=== PATIENT | female | born 1985 | race Caucasian/White ===

== ENCOUNTER 2019-09-09 16:25 | Inpatient (IN) | payer BC, MEDICAID, OTHER ==
[2019-09-09] MEDS ORDERED: Lidocaine 1% 30 ML SDV INJECT PRN (16:56)
[2019-09-09] MEDS ORDERED: Lactated Ringers 1,000 ML IV ONE (16:56)
[2019-09-09] MEDS ORDERED: Sodium Chloride 0.9% 10 ML Syringe FLUSH PRN (16:56)
[2019-09-09] MEDS ORDERED: Misoprostol 400 MCG (4 X 100 MCG TAB) RECTAL PRN (16:56)
[2019-09-09] MEDS ORDERED: Ondansetron 4 MG/2 ML SDV IV PRN (16:56)
[2019-09-09] MEDS ORDERED: Carboprost Tromethamine 250 MCG/1 ML Amp IM PRN (16:56)
[2019-09-09] MEDS ORDERED: Methylergonovine 0.2 MG/1 ML Amp IM PRN (16:56)
[2019-09-09] MEDS ORDERED: Acetaminophen 325 MG Tab PO PRN ×2 (16:56)
[2019-09-09] MEDS ORDERED: Tranexamic Acid 1,000 MG in Sodium Chloride 0.9% 100 ML IV PRN (16:56)
[2019-09-09] MEDS ORDERED: Oxytocin/Normal Saline 30 UNIT/500 ML BAG IV SCH ×2 (17:00)
[2019-09-09] MEDS ORDERED: Penicillin G Potassium 5 MILLUNITS in Sodium Chloride 0.9% 100 ML IV ONE (17:00)
[2019-09-09] MEDS: Lactated Ringers 1,000 ML IV SCH (17:35)
[2019-09-09] MEDS: Penicillin G Potassium 3 MILLUNITS in Sodium Chloride 0.9% 100 ML IV SCH (21:48)
[2019-09-09] MEDS ORDERED: fentaNYL 100 MCG/2 ML SDV IVPUSH PRN (22:09)
[2019-09-09] MEDS ORDERED: Calcium Carbonate 500 MG Tab.Chew PO ONE (22:38)
[2019-09-10] MEDS: Lactated Ringers 1,000 ML IV SCH ×4 (01:47→18:52)
[2019-09-10] MEDS: Penicillin G Potassium 3 MILLUNITS in Sodium Chloride 0.9% 100 ML IV SCH ×4 (01:48→21:59)
[2019-09-10] MEDS ORDERED: ceFAZolin 2 GM in Premix Bag 1 BAG IV ONE (07:26)
[2019-09-10] MEDS ORDERED: Citric Acid/Sodium Citrate Solution 30 ML Cup PO ONE (07:26)
[2019-09-10] MEDS ORDERED: diphenhydrAMINE 50 MG/ML SDV IVPUSH PRN (07:27)
[2019-09-10] MEDS ORDERED: ePHEDrine 50 MG/ML SDV IVPUSH PRN (07:27)
[2019-09-10] MEDS ORDERED: Acetaminophen/oxyCODONE 325-5 MG Tab PO PRN (07:27)
[2019-09-10] MEDS ORDERED: Naloxone 2 MG/2 ML Syringe IVPUSH PRN (07:27)
[2019-09-10] MEDS ORDERED: Oxytocin/Normal Saline 60 UNIT/1,000 ML BAG ONE (07:29)
[2019-09-10] MEDS: Simethicone 80 MG Tab.Chew PO SCH ×4 (10:58→20:06)
--- NOTE | 2019-09-10 12:46 | OR ---
DATE: 09/10/2019 PREOPERATIVE DIAGNOSES: 1. Intrauterine at 39 weeks by 10 and 3/7 weeks ultrasound. 2. Nonreassuring status. 3. Advanced maternal age. 4. Group B Streptococcus positive bacteriuria with antibiotics given. 5. Contractions with cervical change during this week of admission. 6. Rh negative. 7. History of macrosomia. 8. BV in . 9. G5, P3-0-1-3. POSTOPERATIVE DIAGNOSES: 1. Intrauterine at 39 weeks by 10 and 3/7 weeks ultrasound, delivered. 2. Nonreassuring status. 3. Advanced maternal age. 4. Group B Streptococcus positive bacteriuria with antibiotics given. 5. Contractions, cervical change during this week of admission. 6. Rh negative. 7. History of macrosomia. 8. BV in . 9. G5, P3-0-1-3. 10.Nuchal cord x1, reduced bluntly with delivery. PROCEDURE PERFORMED: Primary low transverse with 2-layer uterine closure with prior procedures being NST and Pitocin on 09/09/2019, followed by artificial rupture of membranes, scalp electrode, and then the on 09/10/2019. CORE SUCKER: Denise Chavez MD ANESTHESIA: Spinal. ESTIMATED BLOOD LOSS: 500 mL. IV FLUIDS: Lactated Ringer's 300 mL. URINE OUTPUT: 500 mL and clear. START: 0800. UTERINE: 8:01. DELIVERY: 8:02. STOP: 8:18. FINDINGS: Female, score 9 and 9 with nuchal cord x1 reduced bluntly with delivery. DESCRIPTION OF PROCEDURE IN DETAIL: After proper consent was obtained, the patient was brought to the operating room where spinal anesthetic was administered. Randolph was placed in preop under sterile conditions. The abdomen was prepped and draped in a normal sterile fashion. The patient was placed in supine position with left lateral tilt using Betadine due to the timeliness. Prior to Betadine administration, heart tones were in the high 160s. A skin incision was then made over lower abdomen in transverse Pfannenstiel-type fashion. This was carried down the fascia and scored in midline. Subcutaneous tissue was raked laterally with Willis retractor and fascial incision was extended in transverse fashion using curved Song's. Brandon clamps x2 were used to grasp the superior aspect of fascia and rectus muscles were dissected from the fascia using sharp and blunt technique. In a similar fashion, Brandon clamps x2 were used to grasp the inferior portion of incision and rectus and pyramidalis muscles were dissected from the fascia using blunt and sharp technique. Rectus muscles were in the midline with blunt technique. Abdominal cavity was entered with blunt technique and incision was extended superiorly and inferiorly with blunt technique. Sarabjit O large retractor was then introduced and used. Vesicouterine peritoneum was identified and incised in transverse fashion with Metzenbaum scissors and bladder flap was made digitally. A curvilinear incision was made along the lower uterine segment at 0801 hours. Uterus was entered sharply with some blood noted. Uterine incision was then extended in transverse fashion using blunt technique. vertex was then delivered through the incision followed by rest of the infant with minimal difficulty. Nuchal cord x1 was noted and reduced bluntly with delivery. Mouth and nares were suctioned. Cord was doubly clamped and cut, and was brought over to the team. Then, approximately 10 mL cord blood was obtained for labs. Placenta then delivered with gentle cord traction and fundal massage. Uterine cavity was then cleared of all blood clots and debris with lap sponge. Laureano clamps were used to grasp the uterine incision. This was closed in a running locked fashion and tied at lateral margins with 1-0 Vicryl. Second imbricating layer was applied and tied at lateral margins with an 0 Vicryl. First inspection of the uterine incision revealed hemostasis. Sarabjit O retractor was then removed and paracolic gutters were then cleared of all blood clots and debris with lap sponge. Anterior cul-de-sac was irrigated copiously and all blood clots were removed. Second and final inspection of the uterine incision and anterior cul-de-sac revealed hemostasis. Rectus muscles were then reapproximated in midline with [id number] stitch using 1-0 Vicryl. Subfascial tissue was found to be hemostatic and fascia was closed in a running fashion and tied at lateral margins with 0 looped PDS. Subcutaneous tissue was irrigated copiously. Hemostasis was reassured. Skin was reapproximated with medium monae. Sterile Aquacel dressing was applied. The uterine fundus was firm and massaged at the conclusion of this case -2 below umbilicus. No immediate complications were noted. Sponge, lap, and needle counts were correct. The patient received 2 g of Ancef preoperatively, Pitocin per protocol, and will receive Toradol at the conclusion of case for pain control. Mother and infant are currently stable at the time of dictation. [facility] /[id number]
--- NOTE | 2019-09-10 13:07 | PN ---
DATE: 09/10/2019 SUBJECTIVE: The patient is still feeling her contractions. I was called as there was tachycardia noted right before artificial rupture of membranes was done and persisted with change down to normal range with position change but now has recurred with concerns with variability. OBJECTIVE: Genitourinary: heart tones in the 180s. Minimal variability is noted. Pitocin has been stopped. Tocometer reveals contractions when reading every 2 to 3 minutes. Vaginal exam reveals her to be essentially unchanged from previously when she had artificial rupture of membranes at 4+ cm, -1 station, vertex suspected, and still yielding copious amounts of clear fluid with scalp electrode applied as difficulty detecting heart tones prior to this. ASSESSMENT AND PLAN: Nonreassuring status with tachycardia that has persisted. scalp electrode was applied to confirm this and is confirmed with minimal variability, therefore stat was called for. I did discuss with the patient and her male partner risks, benefits, alternatives, complications of including, but not limited to, infection, bleeding, damage to internal organs such as bowel, bladder, tubes, uterus, ovaries, and sometimes fetus rarely needing a blood transfusion or further surgery, and rarer maternal or . She understands, agrees, and wishes to proceed. Verbal and written consent were obtained, and questions were answered. We will proceed to the OR as soon as crew is ready and available. [facility] /[id number]
--- NOTE | 2019-09-10 13:37 | PN ---
DATE: 09/10/2019 SUBJECTIVE: The patient's contractions have persisted throughout the night and she has been on Pitocin. OBJECTIVE: Vital Signs: Blood pressure 105/61, heart rate 74. The patient feels afebrile. Appearance: Breathing through contractions, but answering questions appropriately in between. Genitourinary: heart tones in the 120s to 130s, felt to be reactive and reassuring. Tocometer when reading contractions appears to be every 2 to 4 minutes. Pitocin is at 5 milliunits per minute. Vaginal exam reveals her to be 4+ cm, 60% effaced, 0 to -1 station, vertex suspected, and artificial rupture of membranes done after discussion with the patient yielding copious amounts of clear fluid. ASSESSMENT AND PLAN: Intrauterine now at 39 weeks by 10 and 3/7 weeks ultrasound with advanced maternal age, GBS bacteria, now status post working on 4th dose of penicillin, noted with contractions, cervical change earlier this week, and Rh negative, G5, P3-0-1-3 with history of macrosomia. PLAN: We will continue to follow clinically and closely. The patient understands and agrees with the above treatment plan. Pain management was discussed as well. [facility] /[id number]
--- NOTE | 2019-09-10 13:40 | OBOUT ---
DATE: 09/09/2019 TIME: 1645 to 1704. REASON FOR NST: 1. Intrauterine at 38-6/7 weeks by 10-3/7-week ultrasound. 2. Advanced maternal age. 3. GBS bacteria positive with antibiotics to be given. 4. Contractions with cervical change this week. 5. Rh negative. 6. History of macrosomia. 7. BV in the . 8. G5, P3-0-1-3. NST INTERPRETATION: During this time period, heart tone baseline approximately is 135 to 140 and there are at least two 15 x 15 beats per minute accelerations, making this strip reactive. It is also noted to be reassuring. Tocometer reveals no evidence of contractions. Blood pressure 125/74, heart rate is 87. Patient feels afebrile. ASSESSMENT: 1. Nonstress test, reactive and reassuring. 2. Tocometer without contractions. PLAN: Please see H and P for further details. The patient will be admitted. Start penicillin immediately. Consider Pitocin in the future, and continue to follow clinically and closely with above risk factors. The patient understands and agrees with the above treatment plan. [facility] /[id number]
[2019-09-10] MEDS: Ketorolac 30 MG/ML SDV IVPUSH SCH ×2 (14:21→20:07)
[2019-09-10] MEDS: Prenatal Multivitamin with Calcium/Folic Acid/Iron Tab PO SCH (18:17)
[2019-09-11] MEDS: Ketorolac 30 MG/ML SDV IVPUSH SCH (01:58)
[2019-09-11] MEDS: Penicillin G Potassium 3 MILLUNITS in Sodium Chloride 0.9% 100 ML IV SCH ×3 (05:07→17:05)
[2019-09-11] MEDS: Prenatal Multivitamin with Calcium/Folic Acid/Iron Tab PO SCH (09:06)
[2019-09-11] MEDS: Docusate Sodium 100 MG Cap PO PRN ×2 (09:07→21:52)
[2019-09-11] MEDS: Simethicone 80 MG Tab.Chew PO SCH ×4 (09:08→21:53)
[2019-09-11] MEDS: Acetaminophen/oxyCODONE 325-5 MG Tab PO PRN ×3 (09:09→21:53)
--- NOTE | 2019-09-11 09:44 | PCM.PNPP ---
- General Info Date of Service: 09/11/19 (POD/PPD # 1 S/P Primary section) Functional Status: Reports: Pain Controlled, Tolerating Diet, Ambulating, Urinating - Review of Systems General: Reports: No Symptoms HEENT: Reports: No Symptoms Pulmonary: Reports: No Symptoms Cardiovascular: Reports: No Symptoms Gastrointestinal: Reports: No Symptoms Genitourinary: Reports: No Symptoms Musculoskeletal: Reports: No Symptoms Skin: Reports: No Symptoms Neurological: Reports: No Symptoms Psychiatric: Reports: No Symptoms - General Info Date of Service: 09/11/19 (POD/PPD # 1 S/P Primary section) - Patient Data Vital Signs - Most Recent: Last Vital Signs Temp 97.7 F 09/10/19 20:00 Pulse 87 09/10/19 20:00 Resp 16 09/10/19 20:00 BP 115/60 09/10/19 20:00 Pulse Ox 98 09/10/19 20:00 Weight - Most Recent: 215 lb I&O - Last 24 Hours: Intake & Output 09/10/19 09/11/19 09/11/19 22:59 06:59 14:59 Intake Total 1700 1000 Output Total 525 1650 Balance 1175 -650 Lab Results - Last 24 Hours: Laboratory Results - last 24 hr 09/10/19 09/11/19 Range/Units 15:35 07:05 WBC 8.8 (5.0-10.0) 10^3/uL RBC 3.14 L (4.2-5.4) 10^6/uL Hgb 8.9 L D (12.0-16.0) g/dL Hct 28.2 L (37.0-47.0) % MCV 89.8 (80-100) fL MCH 28.3 (27.0-34.0) pg MCHC 31.6 L (33.0-35.0) g/dL Plt Count 159 (150-450) 10^3/uL Blood Type B NEGATIVE Gel Antibody Screen Negative Rhogam Indicated Yes, baby rh pos H Med Orders - Current: Current Medications Acetaminophen (Tylenol) 650 mg PO Q4H PRN PRN Reason: Pain (Mild 1-3) and fever Carboprost Tromethamine (Hemabate Ds) 250 mcg IM ASDIRECTED PRN PRN Reason: HEMORRHAGE Diphenhydramine HCl (Benadryl) 25 mg IVPUSH Q6H PRN PRN Reason: Itching or Nausea Docusate Sodium (Colace) 100 mg PO Q12H PRN PRN Reason: Constipation Last Admin: 09/11/19 09:07 Dose: 100 mg Ephedrine Sulfate (Ephedrine Sulfate) 5 mg IVPUSH SEECOMMENT PRN PRN Reason: Other Fentanyl (Sublimaze) 50 mcg IVPUSH Q1H PRN PRN Reason: Pain Ferrous Sulfate (Ferrous Sulfate) 325 mg PO TIDMEALS MATEO Tranexamic Acid 1,000 mg/ (Sodium Chloride) 110 mls @ 660 mls/hr IV ONETIME PRN PRN Reason: Bleeding Lactated Ringer's (Ringers, Lactated) 1,000 mls @ 125 mls/hr IV ASDIRECTED MATEO Last Admin: 09/10/19 18:52 Dose: 125 mls/hr Oxytocin/Sodium Chloride (Pitocin In Ns 30 Unit/500 Ml) 30 unit in 500 mls @ 2 mls/hr IV TITRATE MATEO; Protocol Last Titration: 09/10/19 07:25 Dose: 0 mls/hr Oxytocin/Sodium Chloride (Pitocin In Ns 30 Unit/500 Ml) 30 unit in 500 mls @ 2 mls/hr IV TITRATE MATEO; Protocol Last Titration: 09/10/19 11:04 Dose: 0 munits/min, 0 mls/hr Penicillin G Potassium 3 (millunits/ Sodium Chloride) 100 mls @ 200 mls/hr IV Q4HR MATEO Last Admin: 09/11/19 06:33 Dose: Not Given Ibuprofen (Motrin) 800 mg PO Q8H PRN PRN Reason: mild pain or fever Lidocaine HCl (Xylocaine-Mpf 1%) 30 ml INJECT ASDIRECTED PRN PRN Reason: Perineal Repair Methylergonovine Maleate (Methergine) 0.2 mg IM ASDIRECTED PRN PRN Reason: Hemorrhage Misoprostol (Cytotec) 800 mcg RECTAL ASDIRECTED PRN PRN Reason: Hemorrhage Naloxone HCl (Narcan) 0.1 mg IVPUSH SEECOMMENT PRN PRN Reason: Respiratory Depression Ondansetron HCl (Zofran) 4 mg IV Q4H PRN PRN Reason: Nausea/Vomiting Oxycodone/Acetaminophen (Percocet 325-5 Mg) 1 tab PO Q4H PRN PRN Reason: Pain (moderate 4-6) Oxycodone/Acetaminophen (Percocet 325-5 Mg) 2 tab PO Q4H PRN PRN Reason: Pain (moderate 4-6) Last Admin: 09/11/19 09:09 Dose: 2 tab Prenat Multivit/Naranja/Iron/Folic Ac ( Plus Iron) 1 each PO DAILY [facility] Last Admin: 09/11/19 09:06 Dose: 1 each Simethicone (Simethicone) 160 mg PO QID [facility] Last Admin: 09/11/19 09:08 Dose: 160 mg Sodium Chloride (Saline Flush) 10 ml FLUSH ASDIRECTED PRN PRN Reason: Keep Vein Open Discontinued Medications Acetaminophen (Tylenol) 650 mg PO Q4H PRN PRN Reason: Pain/Fever Calcium Carbonate/Glycine (Tums) 1,000 mg PO ONETIME ONE Stop: 09/09/19 22:39 Last Admin: 09/09/19 22:50 Dose: 1,000 mg Citric Acid/Sodium Citrate (Bicitra Solution) 30 ml PO ONETIME ONE Stop: 09/10/19 07:27 Last Admin: 09/10/19 10:33 Dose: Not Given Lactated Ringer's (Ringers, Lactated) 1,000 mls @ 500 mls/hr IV BOLUS ONE Stop: 09/09/19 18:55 Last Admin: 09/10/19 18:17 Dose: Not Given Penicillin G Potassium 5 (millunits/ Sodium Chloride) 100 mls @ 200 mls/hr IV ONETIME ONE Stop: 09/09/19 17:29 Last Admin: 09/09/19 17:37 Dose: 200 mls/hr Cefazolin Sodium/Dextrose 2 gm (/ Premix) 50 mls @ 100 mls/hr IV ONETIME ONE Stop: 09/10/19 07:55 Last Admin: 09/10/19 07:48 Dose: 100 mls/hr Oxytocin/Sodium Chloride (Pitocin In Ns 30 Unit/500 Ml) Confirm Administered Dose 60 unit in 1,000 mls @ as directed .ROUTE .STK-MED ONE Stop: 09/10/19 07:30 Ketorolac Tromethamine (Toradol) 15 mg IVPUSH Q6H MATEO Stop: 09/11/19 02:01 Last Admin: 09/11/19 01:58 Dose: 15 mg - Infant Interaction Disposition, : [place] in Room with Family Infant Interaction: Holding Infant Feeding: Breastfed Infant; Nursed Well Support Person: - Recovery Exam Fundal Tone: Firm Fundal Level: At Umbilicus Fundal Placement: Midline Lochia Amount: Small Lochia Color: Rubra/Red Perineum Description: Intact, Minimal Bruising/Swelling Episiotomy/Laceration: Approximated Bladder Status: Indwelling Catheter in Place Urinary Elimination: Indwelling Catheter - Exam Quality Assessment: Urine Catheter General: Alert, Oriented, Cooperative, No Acute Distress HEENT: Pupils Equal, Pupils Reactive, EOMI, Mucous Membr. Moist/[place] Neck: Supple Lungs: Clear to Auscultation, Normal Respiratory Effort Cardiovascular: Regular Rate, Regular Rhythm, No Murmurs GI/Abdominal Exam: Normal Bowel Sounds, Soft, Non-Tender, No Organomegaly, No Distention, No Abnormal Bruit Extremities: Normal Inspection, Normal Range of Motion, Non-Tender, No Pedal Edema, Normal Capillary Refill Skin: Warm, Dry, Intact Wound/Incisions: Dressing Dry and Intact, No Drainage Neurological: No New Focal Deficit, Normal Gait, Normal Speech, Normal Tone, Strength Equal Bilateral, Sensation Intact Psy/Mental Status: Alert, Normal Affect, Normal Mood - Problem List Review Problem List Initiated/Reviewed/Updated: Yes - My Orders Last 24 Hours: My Active Orders 09/11/19 12:00 Ferrous Sulfate 325 mg PO TIDMEALS - Assessment Assessment:: PPD/POD # 1 S/P Primary section. Doing well. Chronic anemia of with Acute anemia secondary to blood loss. - Plan Plan:: Continue present care Remove vieira catheter Ambulate Ferrous sulfate 325 mg TID po
[2019-09-11] MEDS: Ibuprofen 800 MG Tab PO PRN ×2 (14:54→22:51)
[2019-09-11] MEDS: Ferrous Sulfate 325 MG Tab PO SCH ×2 (14:58→17:44)
[2019-09-12] MEDS: Acetaminophen/oxyCODONE 325-5 MG Tab PO PRN ×5 (03:56→22:25)
[2019-09-12] MEDS: Simethicone 80 MG Tab.Chew PO SCH ×4 (08:40→22:25)
[2019-09-12] MEDS: Prenatal Multivitamin with Calcium/Folic Acid/Iron Tab PO SCH (08:41)
[2019-09-12] MEDS: Ibuprofen 800 MG Tab PO PRN ×2 (08:41→17:48)
[2019-09-12] MEDS: Docusate Sodium 100 MG Cap PO PRN ×2 (08:41→22:27)
[2019-09-12] MEDS: Ferrous Sulfate 325 MG Tab PO SCH ×3 (08:41→17:47)
--- NOTE | 2019-09-12 11:29 | PCM.PNPP ---
- General Info Date of Service: 09/12/19 (POD/PPD # 2 S/P Primary section) Functional Status: Reports: Pain Controlled, Tolerating Diet, Ambulating, Urinating - Review of Systems General: Reports: No Symptoms HEENT: Reports: No Symptoms Pulmonary: Reports: No Symptoms Cardiovascular: Reports: No Symptoms Gastrointestinal: Reports: No Symptoms Genitourinary: Reports: No Symptoms Musculoskeletal: Reports: No Symptoms Skin: Reports: No Symptoms Neurological: Reports: No Symptoms Psychiatric: Reports: No Symptoms - General Info Date of Service: 09/12/19 (PPD/POD # 2 S/P LTC/S) - Patient Data Vital Signs - Most Recent: Last Vital Signs Temp 98.4 F 09/12/19 08:00 Pulse 81 09/12/19 08:00 Resp 16 09/12/19 08:00 BP 128/68 09/12/19 08:00 Pulse Ox 99 09/12/19 08:00 Weight - Most Recent: 215 lb Med Orders - Current: Current Medications Acetaminophen (Tylenol) 650 mg PO Q4H PRN PRN Reason: Pain (Mild 1-3) and fever Carboprost Tromethamine (Hemabate Ds) 250 mcg IM ASDIRECTED PRN PRN Reason: HEMORRHAGE Diphenhydramine HCl (Benadryl) 25 mg IVPUSH Q6H PRN PRN Reason: Itching or Nausea Docusate Sodium (Colace) 100 mg PO Q12H PRN PRN Reason: Constipation Last Admin: 09/12/19 08:41 Dose: 100 mg Ephedrine Sulfate (Ephedrine Sulfate) 5 mg IVPUSH SEECOMMENT PRN PRN Reason: Other Fentanyl (Sublimaze) 50 mcg IVPUSH Q1H PRN PRN Reason: Pain Ferrous Sulfate (Ferrous Sulfate) 325 mg PO TIDMEALS [facility] Last Admin: 09/12/19 08:41 Dose: 325 mg Tranexamic Acid 1,000 mg/ (Sodium Chloride) 110 mls @ 660 mls/hr IV ONETIME PRN PRN Reason: Bleeding Lactated Ringer's (Ringers, Lactated) 1,000 mls @ 125 mls/hr IV ASDIRECTED [facility] Last Admin: 09/10/19 18:52 Dose: 125 mls/hr Oxytocin/Sodium Chloride (Pitocin In Ns 30 Unit/500 Ml) 30 unit in 500 mls @ 2 mls/hr IV TITRATE MATEO; Protocol Last Titration: 09/10/19 07:25 Dose: 0 mls/hr Oxytocin/Sodium Chloride (Pitocin In Ns 30 Unit/500 Ml) 30 unit in 500 mls @ 2 mls/hr IV TITRATE MATEO; Protocol Last Titration: 09/10/19 11:04 Dose: 0 munits/min, 0 mls/hr Ibuprofen (Motrin) 800 mg PO Q8H PRN PRN Reason: mild pain or fever Last Admin: 09/12/19 08:41 Dose: 800 mg Lidocaine HCl (Xylocaine-Mpf 1%) 30 ml INJECT ASDIRECTED PRN PRN Reason: Perineal Repair Methylergonovine Maleate (Methergine) 0.2 mg IM ASDIRECTED PRN PRN Reason: Hemorrhage Misoprostol (Cytotec) 800 mcg RECTAL ASDIRECTED PRN PRN Reason: Hemorrhage Naloxone HCl (Narcan) 0.1 mg IVPUSH SEECOMMENT PRN PRN Reason: Respiratory Depression Ondansetron HCl (Zofran) 4 mg IV Q4H PRN PRN Reason: Nausea/Vomiting Oxycodone/Acetaminophen (Percocet 325-5 Mg) 1 tab PO Q4H PRN PRN Reason: Pain (moderate 4-6) Oxycodone/Acetaminophen (Percocet 325-5 Mg) 2 tab PO Q4H PRN PRN Reason: Pain (moderate 4-6) Last Admin: 09/12/19 08:43 Dose: 2 tab Prenat Multivit/Moca/Iron/Folic Ac ( Plus Iron) 1 each PO DAILY [facility] Last Admin: 09/12/19 08:41 Dose: 1 each Simethicone (Simethicone) 160 mg PO QID [facility] Last Admin: 09/12/19 08:40 Dose: 160 mg Sodium Chloride (Saline Flush) 10 ml FLUSH ASDIRECTED PRN PRN Reason: Keep Vein Open Discontinued Medications Acetaminophen (Tylenol) 650 mg PO Q4H PRN PRN Reason: Pain/Fever Calcium Carbonate/Glycine (Tums) 1,000 mg PO ONETIME ONE Stop: 09/09/19 22:39 Last Admin: 09/09/19 22:50 Dose: 1,000 mg Citric Acid/Sodium Citrate (Bicitra Solution) 30 ml PO ONETIME ONE Stop: 09/10/19 07:27 Last Admin: 09/10/19 10:33 Dose: Not Given Lactated Ringer's (Ringers, Lactated) 1,000 mls @ 500 mls/hr IV BOLUS ONE Stop: 09/09/19 18:55 Last Admin: 09/10/19 18:17 Dose: Not Given Penicillin G Potassium 5 (millunits/ Sodium Chloride) 100 mls @ 200 mls/hr IV ONETIME ONE Stop: 09/09/19 17:29 Last Admin: 09/09/19 17:37 Dose: 200 mls/hr Penicillin G Potassium 3 (millunits/ Sodium Chloride) 100 mls @ 200 mls/hr IV Q4HR [facility] Last Admin: 09/11/19 17:05 Dose: Not Given Cefazolin Sodium/Dextrose 2 gm (/ Premix) 50 mls @ 100 mls/hr IV ONETIME ONE Stop: 09/10/19 07:55 Last Admin: 09/10/19 07:48 Dose: 100 mls/hr Oxytocin/Sodium Chloride (Pitocin In Ns 30 Unit/500 Ml) Confirm Administered Dose 60 unit in 1,000 mls @ as directed .ROUTE .STK-MED ONE Stop: 09/10/19 07:30 Ketorolac Tromethamine (Toradol) 15 mg IVPUSH Q6H MATEO Stop: 09/11/19 02:01 Last Admin: 09/11/19 01:58 Dose: 15 mg - Infant Interaction Disposition, : in Room with Family Infant Interaction: Holding Infant Infant Feeding: Continues to Breastfeed, Difficulty with Latch-on, Encouraged to Breastfeed Support Person: - Recovery Exam Fundal Tone: Firm Fundal Level: At Umbilicus Fundal Placement: Midline Lochia Amount: Small Lochia Color: Rubra/Red Perineum Description: Intact, Minimal Bruising/Swelling Episiotomy/Laceration: Approximated Bladder Status: Voiding Urinary Elimination: Voided - Exam General: Alert, Oriented, Cooperative, No Acute Distress HEENT: Pupils Equal, Pupils Reactive, EOMI, Mucous Membr. Moist/[place] Neck: Supple Lungs: Clear to Auscultation, Normal Respiratory Effort Cardiovascular: Regular Rate, Regular Rhythm GI/Abdominal Exam: Normal Bowel Sounds, Soft, Non-Tender, No Distention Extremities: Normal Inspection, Normal Range of Motion, Non-Tender, No Pedal Edema Skin: Warm, Dry, Intact Wound/Incisions: Healing Well, Dressing Dry and Intact, No Drainage Neurological: No New Focal Deficit, Normal Gait, Normal Speech Psy/Mental Status: Alert, Normal Affect, Normal Mood - Problem List Review Problem List Initiated/Reviewed/Updated: Yes - My Orders Last 24 Hours: My Active Orders 09/11/19 12:00 Ferrous Sulfate 325 mg PO TIDMEALS - Assessment Assessment:: PPD/POD # 2 S/P Primary section. Doing well. - Plan Plan:: Continue present care Discharge planning for tomorrow.
[2019-09-13] MEDS: Ibuprofen 800 MG Tab PO PRN ×2 (02:17→11:02)
[2019-09-13] MEDS: Acetaminophen/oxyCODONE 325-5 MG Tab PO PRN ×3 (02:17→12:50)
[2019-09-13] MEDS: Ferrous Sulfate 325 MG Tab PO SCH ×2 (07:34→12:52)
[2019-09-13] MEDS: Simethicone 80 MG Tab.Chew PO SCH ×2 (08:52→12:52)
[2019-09-13] MEDS: Docusate Sodium 100 MG Cap PO PRN (08:52)
[2019-09-13] MEDS: Prenatal Multivitamin with Calcium/Folic Acid/Iron Tab PO SCH (08:52)
--- NOTE | 2019-09-13 10:15 | DISCH ---
ADMITTING DIAGNOSES: 1. Intrauterine at 39 weeks by 10 and 3/7 weeks ultrasound. 2. Advanced maternal age. 3. GBS bacteriuria, antibiotics given. 4. Contractions with cervical material movers the week. 5. Rh negative. 6. History of macrosomia. 7. Bacterial vaginosis in the . 8. G5, P3-0-1-3. DISCHARGE DIAGNOSES: 1. Intrauterine at 39 weeks by 10 and 3/7 weeks ultrasound- delivered. 2. Advanced maternal age. 3. GBS bacteriuria, antibiotics given. 4. Contractions with cervical material movers the week. 5. Rh negative. 6. History of macrosomia. 7. Bacterial vaginosis in the . 8. G5, P3-0-1-3. 9. Nonreassuring status. 10.Nuchal cord x1, reduced bluntly with delivery. 11.Anemia of acute blood loss. Hemoglobin dropping from 10.5 to 8.9. PROCEDURE PERFORMED: On 09/09/2019, NST and Pitocin augmentation, and on 09/10/2019, Pitocin augmentation, artificial rupture of membranes, scalp electrode placement followed by primary low transverse with 2-layer uterine closure per Dr. Fonseca. HISTORY OF PRESENT ILLNESS: Please see H and P. SUMMARY OF HOSPITAL COURSE: The patient was admitted on the above date with above diagnoses. Underwent antibiotics followed by Pitocin augmentation, then artificial rupture of membranes, was followed closely. Needed a scalp electrode for further evaluation and had nonreassuring status and underwent a primary low transverse with 2-layer uterine closure under spinal anesthetic with an EBL of 500 mL yielding a female, score 9 and 9, weighing 8 pounds 15 ounces (4054 g). Nuchal cord x1, reduced bluntly with delivery. Please see op note for further details. Postop day #1 and #2, please see progress notes done through Dr. Deleon. Postop day #3, date of discharge, the patient was tolerating p.o., ambulating, urinating, passing flatus, and requesting discharge. No symptoms were elicited, and the patient was followed closely for her anemia. PHYSICAL EXAMINATION: Vital Signs: Last set of vitals updated and listed in chart, temperature 96.8, heart rate 86, blood pressure 108/58, respiratory rate 16. Lungs: Clear to auscultation bilaterally. Heart: S1 and S2. Regular rate and rhythm. Genitourinary: Firm uterus -1 below umbilicus. Aquacel dressing is dry and intact. Extremities: Trace pedal edema. No calf pain. LABORATORY DATA: On 09/11/2019, white cell count 8.8, hemoglobin 8.9, compared to predelivery hemoglobin 10.5 and platelets 159. CONDITION ON DISCHARGE COMPARED TO CONDITION ON ADMISSION: Improved. DISCHARGE INSTRUCTIONS: 1. Diet: As tolerated. 2. No lifting more than 20 pounds. No sit-ups, straining, and pelvic rest for the next 6 weeks with immediate return to fertility discussed with the patient. 3. Reasons to return or go to the emergency room were discussed with the patient in detail including, but not limited to, temperature greater than 100.4, foul-smelling discharge, red hot tender breasts, increased vaginal bleeding, or increasing pain, drainage, or redness around the incision. DISCHARGE MEDICATIONS: [id number] Tylenol or ibuprofen for pain, iron sulfate 325 b.i.d. x6 weeks and vitamins x6 weeks, as well as Percocet 5/325 1 to 2 q.6 hours p.r.n., #15, no refills. Discussed the use of this medication, adverse and wanted effects, as well as precautions with driving. FOLLOWUP: On 09/14/[address] Fonseca in the clinic for staple removal as well as with her baby. Did discuss with her in the interim reasons to return or go to the emergency room in regard to her baby as well. She understands and agrees with the above treatment plan. [facility] /[id number]
[2019-09-13] MEDS ORDERED: Ketorolac 30 MG/ML SDV IVPUSH ONE (13:24)
[2019-09-13] MEDS ORDERED: Oxytocin/Normal Saline 30 UNIT/500 ML BAG IV ONE (13:24)
[2019-09-13] MEDS ORDERED: Morphine PF 1 MG/ML Amp ONE (13:24)
== END 2019-09-13 13:25 | disposition home or self-care (01) | DRG 787 ==
LOC: DL.OBCHECK 16:25 → INTOOBSV 16:56 → DL.OB 16:56 → OBSVTOIN 09-10 08:02
PROVIDERS: ADMIT Family Medicine; ATTEND Family Medicine
PROC: 10D00Z1 Extraction of Products of Conception, Low, Open Approach (ICD-10-PCS; principal; 2019-09-10)
DX: O69.81X0 Labor and delivery complicated by cord around neck, without compression, not applicable or unspecified (principal); D62 Acute posthemorrhagic anemia; O99.824 Streptococcus B carrier state complicating childbirth; O99.02 Anemia complicating childbirth; Z3A.39 39 weeks gestation of pregnancy; Z37.0 Single live birth; Z88.1 Allergy status to other antibiotic agents; Z79.899 Other long term (current) drug therapy
CPT/HCPCS: 36415; 85027; 85461; 86850; 86900; 86901; A9270-GY; J0690; J1885; J2274; J2540; J2590; J2790; J7050; J7120